=== PATIENT | female | born 1965 | race Caucasian/White ===

== ENCOUNTER 2018-07-01 09:14 | Emergency (ER) | payer BC ==
[~2018-07-01] VITALS: Ht 172.7 cm; Wt 131.5 kg
[~2018-07-01 09:14] MED LIST: CELEXA20 MG PO; IRBESARTAN-HCT1 EACH PO; LEVOTHYROXIN0.088 MG PO; OMEGA POWER 11050 MG PO; POTASSIUM20 PO; VITAMIN D2000 UNIT PO; [UNRECOGNIZED DRUG - OTHER] PO
[2018-07-01 09:44] LABS: ABSOLUTE NEUTROPHILS 4.4 thou/uL (1.4-8.2); BASOPHILS 0.3 % (0.0-2.0); EOSINOPHILS 1.9 % (0.0-3.0); HEMATOCRIT 40.6 % (37.0-47.0); HEMOGLOBIN 13.9 gm/dL (12.0-15.0); LYMPHOCYTES 12.5 % (24.0-44.0); MCH 30.1 pg (26.0-34.0); MCHC 34.2 g/dL (28.0-37.0); MCV 88.1 fL (80.0-100.0); MONOCYTES 7.8 % (1.0-8.0); PLATELET COUNT 139 thou/uL (150-400); POLYS 77.5 % (36.0-66.0); RBC 4.61 mil/uL (4.20-5.00); RDW 14.4 % (10.5-14.5); WBC 5.6 thou/uL (4.0-11.0)
[2018-07-01 09:50] LABS: ANION GAP 11 mmol/L (7-16); BUN 17 mg/dL (7-18); CALCIUM 8.6 mg/dL (8.5-10.1); CHLORIDE 104 mmol/L (98-107); CO2 26 mmol/L (21-32); CREATININE 0.9 mg/dL (0.6-1.0); GLUCOSE 145 mg/dL (74-106); POTASSIUM 3.4 mmol/L (3.5-5.1); SODIUM 141 mmol/L (136-145)
[2018-07-01 09:59] LABS: TROPONIN-I <0.06 ng/mL (<0.06)
[2018-07-01 12:34] VITALS: BP 140/73
--- NOTE | 2018-07-01 23:56 | EKG ---
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: : 1965 Requested By: Ramón Espinoza Order Number: [id number] MD: Tyrone Ibanez Measurements Intervals [place] Rate: 74 P: 5 MD: 157 QRS: 28 QRSD: 97 T: 34 QT: 407 QTc: 452 Interpretive Statements Sinus rhythm ST elev, probable normal early repol pattern Compared to ECG 04/16/2015 07:03:20 ST (T wave) deviation more prominent Electronically Signed On 07-01-2018 23:56:21 CDT by Tyrone Ibanez [email or web address] ��������������������������������������������� <ELECTRONICALLY SIGNED> ���������������������������������������� By: Tyrone Ibanez MD ��������������������������������������������� 07/01/18 2356 6 6 Tyrone Ibanez MD /ANDREW
--- NOTE | 2018-07-01 23:57 | EKG ---
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1965 Requested By: Ramón Espinoza Order Number: [id number] MD: Tyrone Ibanez Measurements Intervals [place] Rate: 82 P: 67 RI: 158 QRS: 23 QRSD: 90 T: 39 QT: 388 QTc: 453 Interpretive Statements Sinus rhythm early transition left atrial enlargement nonspecific st/t wave changes Compared to ECG 04/16/2015 07:03:20 no significant changes Electronically Signed On 07-01-2018 23:57:14 CDT by Tyrone Ibanez [email or web address] ��������������������������������������������� <ELECTRONICALLY SIGNED> ���������������������������������������� By: Tyrone Ibanez MD ��������������������������������������������� 07/01/18 2357 1021 20 Tyrone Ibanez MD /EPI
== END 2018-07-01 12:36 | disposition home or self-care (01) ==
LOC: ER 09:14
PROVIDERS: Emergency Medicine
DX: R55 Syncope and collapse (principal); I10 Essential (primary) hypertension; Z88.8 Allergy status to other drugs, medicaments and biological substances

== ENCOUNTER → 2019-05-22 | Outpatient (CLI) | payer OTHER | LOC: CAT 14:17 | DX: Z13.6 Encounter for screening for cardiovascular disorders (principal); E78.00 Pure hypercholesterolemia, unspecified; I25.10 Atherosclerotic heart disease of native coronary artery without angina pectoris ==